=== PATIENT | female | born 1985 | race Caucasian/White ===

== ENCOUNTER 2017-09-11 10:50 | Outpatient (CLI) | payer BC ==
--- NOTE | 2017-09-11 12:24 | Diagnostic Imaging Report ---
Indication: COUGH, dysphagia Technique: Patient ingested effervescent granules, oral thickened and liquid barium, both upright and bone, and rapid sequence photospot and overhead images were obtained. Only limited overhead images could be obtained, per patient request Comparison: None Findings: Normal esophageal motility is demonstrated. Normal caliber esophagus. No strictures or filling defects. No aspiration or penetration of thin liquid barium demonstrated. No ulcerations. No gastroesophageal reflux observed fluoroscopically. Impression: Negative
== END 2017-09-11 12:50 | disposition home or self-care (01) ==
LOC: RAD 10:50
DX: R05 Cough (principal); K21.9 Gastro-esophageal reflux disease without esophagitis
CPT/HCPCS: 74220

== ENCOUNTER 2017-09-18 11:12 | Outpatient (CLI) | payer BC ==
--- NOTE | 2017-09-18 14:17 | Diagnostic Imaging Report ---
Indications: PAIN, chronic cough Technique: Spiral images obtained through the maxillofacial sinuses. No IV contrast utilized. Multiplanar reconstructions were generated.Total dose length product 595 mGycm. CTDIvol(s) 20mGy. Dose reduction achieved using automated exposure control Comparison: None Findings: There is evidence of prior maxillary surgery, with superomedial maxillary wall resection bilaterally. There is near-complete opacification of the left maxillary sinus, and considerable dependent mucosal thickening of the right maxillary sinus. There is mild anterior ethmoid disease. There are is minimal sphenoid sinus disease. The frontal sinuses are clear. The nasal septum is midline. The nasal fossa is unremarkable. There is bilateral meryl bullosa. That on the right contains some mucosal disease. The optic globes are intact. No acute fractures. Normal nasopharynx, oropharynx, hypopharynx. The visualized intracranial structures are unremarkable. The dentition is intact. Impression: Bilateral maxillary sinus disease. Mild ethmoid sinus disease and minimal sphenoid sinus disease. Evidence of bilateral nasoantral windows The CT scanner at [facility] is accredited by the [employer] and the scans are performed using protocols designed to limit radiation exposure to as low as reasonably achievable to attain images of sufficient resolution adequate for diagnostic evaluation.
--- NOTE | 2017-09-18 16:45 | Diagnostic Imaging Report ---
Indication: COUGH Technique: 2 views of the chest Comparison: none. Findings: Lungs and pleural spaces are clear. Heart size is normal. Bones are unremarkable.. Impression: No acute process
== END 2017-09-18 13:12 | disposition home or self-care (01) ==
LOC: CAT 11:12
DX: R05 Cough (principal); J32.0 Chronic maxillary sinusitis; J32.2 Chronic ethmoidal sinusitis
CPT/HCPCS: 70486; 71020